=== PATIENT | female | born 1970 | race Caucasian/White ===

== ENCOUNTER → 2017-04-22 | Outpatient (CLI) | payer BC | LOC: BRMIMAGING 10:29 | DX: M25.572 Pain in left ankle and joints of left foot (principal) | CPT/HCPCS: 73610-PO ==

== ENCOUNTER → 2017-12-17 | Outpatient (CLI) | payer BC | LOC: BRMIMAGING 08:23 | PROVIDERS: ATTEND Family Medicine | DX: R22.41 Localized swelling, mass and lump, right lower limb (principal) | CPT/HCPCS: 76882-PO ==